=== PATIENT | female | born 1980 ===

== ENCOUNTER 2017-05-06 16:47 | Emergency (ER) | payer SELFPAY ==
[2017-05-06 17:19] VITALS: BP 198/142
[2017-05-06] MEDS ORDERED: TETRACAINE 0.5% OU ONE (17:32)
[2017-05-06] MEDS ORDERED: FUL-GLO OP ONE (17:32)
--- NOTE | 2017-05-06 17:34 | Emergency Department Report ---
Chief Complaint: Eye Problems Stated Complaint: LT EYE PAIN Time Seen by Provider: 05/06/17 17:12 - HPI History of Present Illness: PT c/o L eye pain x 1 week. Pt states she thinks she has a corneal abrasion. PT states she does not take her bp medication because she does not like the way it makes her feel. PT also states her bp is always high. - ROS Review of Systems: + l eye pain - Exam Vital Signs: Vital Signs 05/06/17 17:13 Temperature 98.1 F Pulse Rate 99 H Respiratory 16 Rate Blood Pressure 198/142 O2 Sat by Pulse 97 Oximetry Physical Exam: pt with photophobia to L eye MSE screening note: Focused history and physical exam performed. Due to findings the following was ordered: ekg due to pt's bp pt refused lab work ED Disposition for MSE Condition: Stable
--- NOTE | 2017-05-06 17:39 | Emergency Department Report ---
ED Eye Problem HPI - General Chief complaint: Eye Problems Stated complaint: LT EYE PAIN Time Seen by Provider: 05/06/17 17:12 Source: patient Mode of arrival: Ambulatory Limitations: No Limitations - History of Present Illness Initial comments: That is 37 years old female history of high blood pressure came today was left eye pain and greenish discharge for 7 days. Patient denied any eye trauma no visual disturbance no headache no dizziness no other complaint.no fever. MD chief complaint: eye pain, eye redness -: week(s) If Injury: none Eye Symptoms: redness, pain, foreign body sensation, discharge Severity scale (0 -10): 4 If Pain, Quality: aching Consistency: constant Associated Symptoms: none - Related Data Previous Rx's Medication Instructions Recorded Last Taken Type Polymyxin B Sulf/Trimethoprim 2 drop OP QID #1 bottle 05/06/17 Unknown Rx [Polytrim [facility] Drops [id number]/0.1%] Allergies Allergy/AdvReac Type Severity Reaction Status Date / Time meperidine HCl [From Demerol] Allergy Anaphylaxis Verified 05/06/17 17:13 morphine Allergy Anaphylaxis Verified 05/06/17 17:13 ED Review of Systems ROS: Stated complaint: LT EYE PAIN Other details as noted in HPI Comment: All other systems reviewed and negative Constitutional: denies: chills, fever Eyes: eye pain, eye discharge. denies: vision change Respiratory: denies: cough, shortness of breath Cardiovascular: denies: chest pain, palpitations Gastrointestinal: abdominal pain. denies: nausea, vomiting Neurological: denies: headache, weakness, numbness, paresthesias, confusion ED Past Medical Hx - Past Medical History Hx Hypertension: Yes - Surgical History Additional Surgical History: C section x 3 - Social History Smoking Status: Current Every Day Smoker Substance Use Type: Alcohol - Medications Home Medications: Home Medications Medication Instructions Recorded Confirmed Last Taken Type Polymyxin B Sulf/Trimethoprim 2 drop OP QID #1 bottle 05/06/17 Unknown Rx [Polytrim Eye Drops [id number]/0.1%] ED Physical Exam - General Limitations: No Limitations General appearance: alert, in no apparent distress - Head Head exam: Present: normocephalic, normal inspection - Eye Eye exam: Present: PERRL, EOMI, conjunctival injection, other (left eye was a greenish discharge and redness). Absent: scleral icterus, nystagmus, periorbital swelling, periorbital tenderness - Neck Neck exam: Present: normal inspection, full ROM. Absent: tenderness, meningismus, lymphadenopathy - Respiratory Respiratory exam: Present: normal lung sounds bilaterally. Absent: wheezes, rales, rhonchi - Cardiovascular Cardiovascular Exam: Present: regular rate, normal rhythm, normal heart sounds - GI/Abdominal GI/Abdominal exam: Absent: mass, bruit, pulsatile mass - Back Exam Back exam: Present: normal inspection. Absent: CVA tenderness (R), CVA tenderness (L), muscle spasm - Neurological Exam Neurological exam: Present: alert, oriented X3, CN II-XII intact, normal gait, reflexes normal. Absent: abnormal gait, motor sensory deficit - Psychiatric Psychiatric exam: Present: normal affect, normal mood. Absent: depressed, agitated, homicidal ideation, suicidal ideation - Skin Skin exam: Present: warm, normal color ED Course Vital Signs 05/06/17 17:13 Temperature 98.1 F Pulse Rate 99 H Respiratory 16 Rate Blood Pressure 198/142 O2 Sat by Pulse 97 Oximetry - Reevaluation(s) Reevaluation #1: 05/06/17 17:40 Discussed with the patient her hypertension and the need to be on BP medication , patient is adamantly refused any blood pressure medication, she stated that she tried all the blood pressure medicine and all make her drowsy. I informed her about the complication of high blood pressure which include a stroke heart attack and kidney failure and , she stated that she know all that but still does not want to be on any blood pressure medicine.Patient also refused all blood work and imaging. Patient is alert oriented 3 and able to make a sound decision and she is refusing any treatment for high blood pressure. 05/06/17 17:45 Critical care attestation.: If time is entered above; I have spent that time in minutes in the direct care of this critically ill patient, excluding procedure time. ED Disposition Clinical Impression: Conjunctivitis, Hypertensive emergency Disposition: DC-01 TO HOME OR SELFCARE Is pt being admited?: No Condition: Stable Instructions: Hypertension (ED)
== END 2017-05-06 18:08 | disposition home or self-care (01) ==
LOC: ED 16:47
DX: H10.9 Unspecified conjunctivitis (principal); I16.1 Hypertensive emergency; F17.200 Nicotine dependence, unspecified, uncomplicated; Z88.6 Allergy status to analgesic agent
CPT/HCPCS: 93005; 93010; 99283